=== PATIENT | male | born 1985 | race Caucasian/White ===

== ENCOUNTER 2019-07-11 22:52 | Emergency (ER) | payer OTHER ==
[~2019-07-11] VITALS: Ht 188 cm; Wt 95.5 kg
[2019-07-12] MEDS ORDERED: TAMIFLU 75MG75 MG PO (00:14)
[2019-07-12 00:28] VITALS: BP 131/79; PULSE 98; TEMP 99.1
== END 2019-07-12 00:30 | disposition home or self-care (01) ==
LOC: COL.ER 22:52
DX: J10.1 Influenza due to other identified influenza virus with other respiratory manifestations (principal)